=== PATIENT | female | born 1960 | race Caucasian/White ===

== ENCOUNTER → 2018-02-10 | Outpatient (CLI) | payer MEDICAID ==
[~2018-02-10] MED LIST: LEVO75TA3 PO; Z.0.NO CURRENT MEDS
[2018-02-10 12:40] LABS: AUTOMATED NEUTROPHIL # 3.7 TH/MM3 (1.8-7.7); BASOPHIL # 0.1 TH/MM3 (0-0.2); BASOPHIL % 1.1 % (0.0-2.0); EOSINOPHIL # 0.2 TH/MM3 (0-0.4); EOSINOPHIL % 3.2 % (0.0-4.0); HEMATOCRIT 38.9 % (35.0-46.0); HEMOGLOBIN 12.9 GM/DL (11.6-15.3); LYMPH % 31.6 % (9.0-44.0); MEAN CORPUSCULAR HEMOGLOBIN 29.6 PG (27.0-34.0); MEAN CORPUSCULAR HGB CONC 33.3 % (32.0-36.0); MEAN PLATELET VOLUME 7.9 FL (7.0-11.0); MONO % 6.9 % (0.0-8.0); MONOCYTE # 0.4 TH/MM3 (0-0.9); NEUT % 57.2 % (16.0-70.0); PLATELET COUNT 192 TH/MM3 (150-450); RED BLOOD COUNT 4.37 MIL/MM3 (4.00-5.30); RED CELL DISTRIBUTION WIDTH 12.7 % (11.6-17.2); WHITE BLOOD COUNT 6.4 TH/MM3 (4.0-11.0)
--- NOTE | 2018-02-12 09:22 | EKG ---
Date Performed: 02/10/2018 Time Performed: 12:48:39 PTAGE: 57 years EKG: Sinus rhythm NORMAL ECG NO PREVIOUS TRACING DOCTOR: Aisha Wu Interpretating Date/Time 02/12/2018 09:17:12
== END ==
LOC: PHPRE 11:42
PROVIDERS: ATTEND Orthopaedic Surgery
DX: Z01.810 Encounter for preprocedural cardiovascular examination (principal); Z01.812 Encounter for preprocedural laboratory examination; S83.241A Other tear of medial meniscus, current injury, right knee, initial encounter; X58.XXXA Exposure to other specified factors, initial encounter
CPT/HCPCS: 36415; 85025; 93005

== ENCOUNTER → 2018-02-18 | Day surgery (SDC) | payer MEDICAID ==
[~2018-02-18] VITALS: Ht 162.6 cm; Wt 94.0 kg
[~2018-02-18] MED LIST changes: +ACETAMINOPHEN 325 MG TAB PO PRN; +BUPIVACAINE/EPINEPHRINE 0.5% PF 30 ML VIAL ONE; +CHLORHEXIDINE GLUCONATE 2 % 1 PACK (2 CLOTHS) TOPICAL PRN; +CHLORHEXIDINE GLUCONATE 4% SOLN 120 ML BTL TOPICAL SCH; +FAMOTIDINE 20 MG/2 ML VIAL ONE; +INSULIN HUMAN REGULAR 1,000 UNITS/10 ML VIAL SQ PRN; +LACTATED RINGER'S 1000 ML IV PRN; +METOPROLOL TARTRATE 25 MG TAB PO PRN; +MIDAZOLAM HCL 2 MG/2 ML VIAL ONE; +MORPHINE SULFATE 4 MG/ML INJ ONE; +POVIDONE IODINE 5% (ANTISEPSIS KIT) 4 APPLICATIONS EACH NARE PRN; +SODIUM CHLORID 0.9% 500 ML IV PRN; +TRIAMCINOLONE ACETONIDE 40 MG/ML VIAL ONE; -Z.0.NO CURRENT MEDS
--- NOTE | 2018-02-18 13:52 | MP ---
cc: Caden Laboy MD DATE OF OPERATION: 02/18/2018 SURGEON: Dr. Caden Laboy PREOPERATIVE DIAGNOSIS: Tear, medial meniscus, right knee joint. POSTOPERATIVE DIAGNOSES: 1. Tear, medial meniscus, right knee. 2. Osteoarthritis/chondromalacia medial compartment and patellofemoral joint. 3. Synovitis, right knee joint, chronic in nature. PROCEDURE: 1. Arthroscopic debridement and total synovectomy. 2. Chondroplasty medial compartment. 3. Chondroplasty anterior compartment. 4. Subtotal medial meniscectomy. DETAILS OF PROCEDURE: The patient was placed on the operating table in the supine position. Adequate general anesthesia was administered by the anesthesiologist. The patient's right knee was prepped and draped in the usual sterile fashion. A timeout was called and the patient's name, procedure, location, etc., were fully confirmed. An Esmarch bandage was used to exsanguinate the lower extremity and a pneumatic tourniquet was inflated to the level of the mid-thigh to 300. An anterolateral portal was used for introduction of the scope and the joint was distended with lactated Ringer's solution. A systematic examination of the knee joint revealed the above-mentioned findings. Severe synovial hypertrophy was noted extending from the suprapatellar pouch down into the intercondylar fossa and along the medial capsular structures. The medial compartment did reveal complex tearing of the medial meniscus. The anterior cruciate ligament was covered in synovium, but after this was excised, we were able to visualize it to be intact. This was also true of the posterior cruciate. The lateral meniscus and lateral compartment were totally pristine in nature with no evidence of degenerative or posttraumatic disease. We then proceeded with subtotal medial meniscectomy utilizing an Aggressive meniscal resector. We then did a full chondroplasty of the medial femoral condyle extending all the way to the anterior cruciate ligament and the synovial tissue removed in that compartment as well. It was then brought back up into the suprapatellar pouch where we began synovectomy and continued it all the way to the intercondylar fossa. Following this procedure and visualizing the entire knee joint, it was considerably improved. The remaining meniscus did appeared to be healthy in nature with no residual tears or instability. No loose bodies were encountered. The joint was thoroughly irrigated and then aspirated of all fluid. Instruments were then removed and the 2 stab wounds repaired with simple 3-0 nylon. An intraarticular injection of 10 mL of 0.5% Marcaine with 1 mL of 40 mg of Kenalog was then instilled through the lateral portal. Xeroform gauze was applied over both wounds, followed by application of a bulky dressing. The tourniquet was then deflated and examination of the foot revealed adequate return of circulation. Total tourniquet time was 17 minutes. The patient tolerated the procedure well and without complications and was transferred to the recovery room in satisfactory condition. MD KEKE Winters/ROSEMARIE , 01:27 PM , 01:51 PM
[2018-02-18 14:40] VITALS: BP 140/100; PULSE 64; RESP 16; TEMP 97.9; O2SAT 99
== END | disposition home or self-care (01) ==
LOC: PHSDC 09:19
PROVIDERS: ATTEND Orthopaedic Surgery
DX: S83.241A Other tear of medial meniscus, current injury, right knee, initial encounter (principal); M22.41 Chondromalacia patellae, right knee; M65.861 Other synovitis and tenosynovitis, right lower leg; M17.11 Unilateral primary osteoarthritis, right knee
CPT/HCPCS: 01400; 29881; E0113; J2250; J2270; J3010; J3301; J7120